=== PATIENT | male | born 1995 | race Caucasian/White ===

== ENCOUNTER 2020-08-23 19:48 | Emergency (ER) | payer BC ==
[~2020-08-23] VITALS: Ht 175.3 cm; Wt 59.0 kg
== END 2020-08-23 22:53 | disposition home or self-care (01) ==
LOC: ER 19:48
DX: S00.83XA Contusion of other part of head, initial encounter (principal); R42 Dizziness and giddiness; W18.39XA Other fall on same level, initial encounter; Y93.89 Activity, other specified; Y92.091 Bathroom in other non-institutional residence as the place of occurrence of the external cause; Y99.8 Other external cause status

== ENCOUNTER 2020-08-29 22:09 | Emergency (ER) | payer BC ==
[~2020-08-29] VITALS: Ht 175.3 cm; Wt 59.0 kg
[2020-08-29] MEDS ORDERED: ACETAMINOPHEN500 M1 PO (23:46)
[2020-08-29] MEDS ORDERED: VISTARIL50 MG PO (23:46)
== END 2020-08-29 23:34 | disposition home or self-care (01) ==
LOC: ER 22:09
DX: R51.9 Headache, unspecified (principal); F41.0 Panic disorder [episodic paroxysmal anxiety]; F41.8 Other specified anxiety disorders